=== PATIENT | female | born 1980 | race Two or more races ===

== ENCOUNTER 2025-02-09 13:15 | Emergency (ER) | payer OTHER ==
[~2025-02-09] VITALS: Ht 165.1 cm; Wt 54.4 kg
[2025-02-09] MEDS ORDERED: LIDOCAINE HCL 1% 10ML VIAL PERCUT ONE (15:30)
[2025-02-09] MEDS ORDERED: CEFTRIAXONE SODIUM 1,000 MG VIAL IM ONE (15:30)
[2025-02-09] MEDS ORDERED: LIDOCAINE HCL 1% 10ML VIAL ONE (15:42)
[2025-02-09] MEDS ORDERED: CEFTRIAXONE SODIUM 1,000 MG VIAL ONE ×2 (15:42→18:17)
[2025-02-09] MEDS ORDERED: INTESTINEX680 M1 PO (18:04)
[2025-02-09] MEDS ORDERED: PEPCID AC20 MG PO (18:04)
[2025-02-09] MEDS ORDERED: DUI500 PO (18:04)
== END 2025-02-09 18:37 ==
LOC: ER 13:15 → EMR PED 13:40 → ER 18:37
DX: S61.422A Laceration with foreign body of left hand, initial encounter (principal); W25.XXXA Contact with sharp glass, initial encounter; Y93.89 Activity, other specified; Y92.89 Other specified places as the place of occurrence of the external cause

== ENCOUNTER 2025-03-29 11:54 | Outpatient (CLI) | payer OTHER ==
[~2025-03-29 11:54] MED LIST: DUI500 PO; INTESTINEX680 M1 PO; PEPCID AC20 MG PO
== END 2025-03-29 12:08 | disposition home or self-care (01) ==
LOC: RAD 11:54
PROVIDERS: ATTEND Physical Medicine & Rehabilitation
DX: M54.2 Cervicalgia (principal)

== ENCOUNTER 2025-04-12 07:42 | Outpatient (CLI) | payer OTHER | END 2025-04-12 07:53 | disposition home or self-care (01) | LOC: SONOGRAMA 07:42 | DX: K76.9 Liver disease, unspecified (principal); K74.60 Unspecified cirrhosis of liver; R16.0 Hepatomegaly, not elsewhere classified ==